=== PATIENT | male | born 1960 | race Caucasian/White ===

== ENCOUNTER 2017-03-21 22:58 | Emergency (ER) | payer OTHER ==
[~2017-03-21] VITALS: Ht 175.3 cm; Wt 128.6 kg
[~2017-03-21 22:58] MED LIST: ASPIR 8181 M1 PO; CLOPIDOGREL75 MG PO; METFORMIN HCL500 MG PO; METOPROLOL SUC100 MG PO; OMEPRAZOLE20 M2 PO; PREDNISONE20 MG PO; SIMVASTATIN80 MG PO; SYNTHROID50 MCG PO; VICODIN 5-3001 EACH PO; ZESTORETIC 20-1 EAC1 NG
[2017-03-22 00:43] VITALS: BP 142/85
== END 2017-03-22 00:44 | disposition home or self-care (01) ==
LOC: EME 22:58
DX: R60.0 Localized edema (principal); S86.911A Strain of unspecified muscle(s) and tendon(s) at lower leg level, right leg, initial encounter; E11.9 Type 2 diabetes mellitus without complications; I10 Essential (primary) hypertension; X50.9XXA Other and unspecified overexertion or strenuous movements or postures, initial encounter; Z95.5 Presence of coronary angioplasty implant and graft; Z88.6 Allergy status to analgesic agent; Z88.0 Allergy status to penicillin; Z87.891 Personal history of nicotine dependence
CPT/HCPCS: 93971; 99281; 99284